=== PATIENT | female | born 1945 | race Caucasian/White ===

== ENCOUNTER 2023-06-28 16:45 | Emergency (ER) | payer OTHER ==
[2023-06-28 16:50] VITALS: RESP 18; TEMP 98.2; BMI 30.2
[2023-06-28] MEDS ORDERED: ACETAMINOPHEN 1000 MG/100 ML BAG IVPB ONE (18:15)
[2023-06-28] MEDS ORDERED: ACETAMINOPHEN 500 MG TABLET (FP) PO ONE (19:05)
[2023-06-28 19:32] VITALS: BP 148/74; PULSE 75
== END 2023-06-28 19:20 | disposition home or self-care (01) ==
LOC: JER 16:45
DX: S40.012A Contusion of left shoulder, initial encounter (principal); S80.02XA Contusion of left knee, initial encounter; R51.9 Headache, unspecified; H53.2 Diplopia; W01.198A Fall on same level from slipping, tripping and stumbling with subsequent striking against other object, initial encounter; Y93.01 Activity, walking, marching and hiking
CPT/HCPCS: 70450-TC; 72125-TC; 73030-TC-LT-FY; 73562-TC-LT-FY; 99284-25